=== PATIENT | female | born 1990 | race Caucasian/White ===

== ENCOUNTER 2020-12-20 12:56 | Outpatient (CLI) | payer OTHER ==
[~2020-12-20 12:56] MED LIST: COLACE 100MG C100 MG PO; HYDROCODON-ACE1 EAC4 PO; IBUPROFEN600 MG PO; MIRALAX17 GM PO; NAPROSYN500 MG PO; OXYBUTYNIN CHLOR5 MG PO
[2020-12-20 14:35] LABS: HEMOGLOBIN 11.7 gm/dl (12.3-15.3); RED BLOOD COUNT 3.74 M/UL (4.00-5.10); WHITE BLOOD COUNT 10.5 K/UL (4.5-11.0)
[2020-12-21] MEDS ORDERED: NAPROSYN EC 50500 MG PO (09:39)
[2020-12-21] MEDS ORDERED: HYDROCODON-ACE1 EAC4 PO (09:39)
== END 2020-12-20 14:30 | disposition home or self-care (01) ==
LOC: GENOP 12:56
PROVIDERS: Obstetrics & Gynecology
DX: Z53.8 Procedure and treatment not carried out for other reasons (principal)
CPT/HCPCS: 36415; 81001; 85025

== ENCOUNTER 2020-12-21 05:24 | Inpatient (IN) | payer OTHER ==
[~2020-12-21] VITALS: Ht 157.5 cm; Wt 85.3 kg
[2020-12-21] MEDS ORDERED: HYDROCODON-ACE1 EAC4 PO (09:39)
[2020-12-21] MEDS ORDERED: NAPROSYN EC 50500 MG PO (09:39)
[2020-12-22 06:27] LABS: HEMOGLOBIN 10.1 gm/dl (12.3-15.3)
[2020-12-23] MEDS ORDERED: COLACE100 MG PO (10:11)
[2020-12-23] MEDS ORDERED: HYDROCODON-ACE1 EAC4 PO (10:11)
[2020-12-23] MEDS ORDERED: IBUPROFEN600 MG PO (10:11)
== END 2020-12-23 12:37 | disposition home or self-care (01) | DRG 788 ==
LOC: OB 05:24
PROVIDERS: ADMIT Obstetrics & Gynecology
PROC: 10D00Z0 Extraction of Products of Conception, High, Open Approach (ICD-10-PCS; principal; 2020-12-21 07:30)
DX: O34.83 Maternal care for other abnormalities of pelvic organs, third trimester (principal); Z3A.39 39 weeks gestation of pregnancy; Z37.0 Single live birth
CPT/HCPCS: 36415; 81001; 82800; 85014; 85018; 85025; C9113; J0690; J1885; J2274; J2405; J2590; J3010; J7120; U0003